=== PATIENT | male | born 1995 | race Caucasian/White ===

== ENCOUNTER 2019-08-05 11:37 | Inpatient (IN) | payer OTHER ==
[2019-08-05] MEDS ORDERED: ACETAMINOPHEN 325 MG TABLET (FP) PO PRN ×2 (12:51)
[2019-08-05] MEDS ORDERED: MAGNESIUM CITRATE 300 ML BOTTLE PO PRN (12:51)
[2019-08-05] MEDS ORDERED: BISMUTH SUBSALICYLATE 524 MG/30 ML UD PO PRN (12:51)
[2019-08-05] MEDS ORDERED: ONDANSETRON *ODT* 4 MG TABLET SL ONE (12:51)
[2019-08-05] MEDS ORDERED: MAGNESIUM HYDROX 2400MG/30ML ORAL SUSPENSION 30 ML CUP PO PRN (12:51)
[2019-08-05] MEDS ORDERED: chlordiazePOXIDE HCL 25 MG CAPSULE PO PRN (12:51)
[2019-08-05] MEDS ORDERED: METHOCARBAMOL 500 MG TABLET PO PRN (12:51)
[2019-08-05] MEDS ORDERED: MAG HYDROX/AL HYDROX/SIMETH 30 ML UNIT-DOSE CUP PO PRN (12:51)
[2019-08-05] MEDS ORDERED: IBUPROFEN 400 MG TABLET (FP) PO PRN (12:51)
[2019-08-05] MEDS ORDERED: MENTHOL/PHENOL 1 EACH UD MM PRN (12:51)
[2019-08-05] MEDS ORDERED: NICOTINE POLACRILEX 2 MG GUM BUC PRN (12:51)
[2019-08-05 14:24] VITALS: BMI 24.2
[2019-08-05] MEDS: PRENATAL VITAMINS W/ FOLIC ACID TABLET (FP) PO SCH (15:47)
[2019-08-05] MEDS: hydrOXYzine PAMOATE 25 MG CAPSULE (FP) PO SCH ×3 (15:47→22:10)
[2019-08-05] MEDS: NICOTINE 7 MG/24 HOURS TOPICAL PATCH TD SCH (15:47)
[2019-08-05 18:10] LABS: HEMATOCRIT 45.7 % (35.4-49); HEMOGLOBIN 15.3 GM/dL (11.7-16.9); MCHC 33.4 g/dl (32.0-35.9); MEAN CELL VOLUME 95.7 fl (80-96); MEAN PLT VOLUME 8.4 fl (7.5-11.1); PLATELET COUNT 250 K/MM3 (134-434); RBC 4.77 M/mm3 (4.00-5.60); RDW 13.8 % (11.9-15.9); WHITE BLOOD COUNT 7.2 K/mm3 (4.0-10.0)
[2019-08-05] MEDS: chlordiazePOXIDE HCL 25 MG CAPSULE PO SCH ×2 (18:13→22:10)
[2019-08-05 18:15] LABS: ALBUMIN 4.4 g/dl (3.4-5.0); BILIRUBIN,TOTAL 0.8 mg/dL (0.2-1); BLOOD UREA NITROGEN 19.2 mg/dL (7-18); CALCIUM 9.5 mg/dL (8.5-10.1); CREATININE 1.2 mg/dL (0.55-1.3); TOT PROT 7.4 g/dl (6.4-8.2)
[2019-08-05] MEDS: MELATONIN 5 MG TABLETS PO SCH (22:10)
[2019-08-05] MEDS: THIAMINE HCL 100 MG TABLET (FP) PO SCH (22:10)
[2019-08-06] MEDS: chlordiazePOXIDE HCL 25 MG CAPSULE PO SCH ×4 (05:20→22:06)
[2019-08-06] MEDS: hydrOXYzine PAMOATE 25 MG CAPSULE (FP) PO SCH ×5 (05:27→22:06)
[2019-08-06] MEDS: PRENATAL VITAMINS W/ FOLIC ACID TABLET (FP) PO SCH (10:04)
[2019-08-06] MEDS: NICOTINE 7 MG/24 HOURS TOPICAL PATCH TD SCH (10:07)
[2019-08-06] MEDS: GABAPENTIN 300 MG CAPSULE PO SCH ×2 (12:39→22:06)
[2019-08-06] MEDS: SERTRALINE HCL 50 MG TABLET (FP) PO SCH (12:39)
[2019-08-06] MEDS ORDERED: QUEtiapine FUMARATE 200 MG TABLET PO SCH (22:00)
[2019-08-06] MEDS ORDERED: QUEtiapine FUMARATE 100 MG TABLET (FP) PO SCH (22:00)
[2019-08-06] MEDS: MELATONIN 5 MG TABLETS PO SCH (22:07)
[2019-08-06] MEDS: THIAMINE HCL 100 MG TABLET (FP) PO SCH (22:07)
[2019-08-07] MEDS: chlordiazePOXIDE HCL 25 MG CAPSULE PO SCH ×2 (06:09→10:21)
[2019-08-07] MEDS: hydrOXYzine PAMOATE 25 MG CAPSULE (FP) PO SCH ×2 (06:09→09:45)
[2019-08-07 08:51] VITALS: BP 122/73; PULSE 70; TEMP 98.9
[2019-08-07] MEDS ORDERED: PENICILLIN G BENZATHINE 2,400,000 UNIT/4 ML PFS IM ONE (09:17)
[2019-08-07] MEDS: SERTRALINE HCL 50 MG TABLET (FP) PO SCH (09:43)
[2019-08-07] MEDS: GABAPENTIN 300 MG CAPSULE PO SCH (09:43)
[2019-08-07] MEDS: NICOTINE 7 MG/24 HOURS TOPICAL PATCH TD SCH (09:44)
[2019-08-07] MEDS: PRENATAL VITAMINS W/ FOLIC ACID TABLET (FP) PO SCH (09:45)
[2019-08-08] MEDS ORDERED: chlordiazePOXIDE HCL 10 MG CAPSULE PO PRN
[2019-08-08] MEDS ORDERED: chlordiazePOXIDE HCL 10 MG CAPSULE PO SCH (05:00)
[2019-08-09] MEDS ORDERED: chlordiazePOXIDE HCL 10 MG CAPSULE PO SCH (05:00)
[2019-08-10] MEDS ORDERED: chlordiazePOXIDE HCL 10 MG CAPSULE PO ONE (05:00)
== END 2019-08-07 09:58 | disposition left against medical advice (07) | DRG 770 ==
LOC: YASAS 11:37 → Y3N 14:04
PROVIDERS: ADMIT Allergy & Immunology; ATTEND Allergy & Immunology
PROC: HZ2ZZZZ Detoxification Services for Substance Abuse Treatment (ICD-10-PCS; principal; 2019-08-05)
DX: F10.230 Alcohol dependence with withdrawal, uncomplicated (principal); F14.20 Cocaine dependence, uncomplicated; F12.10 Cannabis abuse, uncomplicated; F17.210 Nicotine dependence, cigarettes, uncomplicated; F32.9 Major depressive disorder, single episode, unspecified; F19.282 Other psychoactive substance dependence with psychoactive substance-induced sleep disorder; F39 Unspecified mood [affective] disorder; Z86.19 Personal history of other infectious and parasitic diseases
CPT/HCPCS: 36415; 80053; 85027; 86593; 86780; 93005; 93010

== ENCOUNTER 2019-10-15 09:21 | Inpatient (IN) | payer OTHER ==
--- NOTE | 2019-10-15 09:48 | BHS.RME ---
Substance Use & Tx History - Substance Use History Alcohol Substance amount: 3 pints whiskey Frequency of use: Daily Substance route: Oral Date of Last Use: 10/14/19 Cocaine-Crack Substance amount: $400 Frequency of use: Daily Substance route: Smoking Date of Last Use: 10/14/19 Marijuana/Hashish Substance amount: 3 blunts Frequency of use: Daily Substance route: Smoking Date of Last Use: 10/14/19 Nicotine Substance amount: 1 pack Frequency of use: Daily Substance route: Smoking Date of Last Use: 10/15/19 Physical/Psych/Mental Status - Behavior General Behavior: Increased activity (restlessness, agitation) Eye Contact: Normal - Cooperativeness Cooperativeness: Cooperative - Thinking Thought Processes: Tight, Logical, Goal Directed - Physical Health Problems Is patient presently having any pain?: No Does patient presently have any injuries (include location): No Does patient currently have a fever: No Is patient : No CIWA Nausea/Vomitin-No Nausea/No Vomiting Muscle Tremors: 1-None Visible, but [place] Anxiety: 4-Mod. Anxious/Guarded Agitation: 4-Moderately Restless Paroxysmal Sweats: 4-Forehead w/Sweat Beads Orientation: 1-Uncertain about Date Tacttile Disturbances: 0-None Auditory Disturbances: 0-None Visual Disturbances: 0-None Headache: 0-None Present CIWA-Ar Total Score: 14
--- NOTE | 2019-10-15 10:18 | HP ---
CIWA Score Nausea/Vomitin-No Nausea/No Vomiting Muscle Tremors: 1-None Visible, but [place] Anxiety: 4-Mod. Anxious/Guarded Agitation: 4-Moderately Restless Paroxysmal Sweats: 4-Forehead w/Sweat Beads Orientation: 1-Uncertain about Date Tacttile Disturbances: 0-None Auditory Disturbances: 0-None Visual Disturbances: 0-None Headache: 0-None Present CIWA-Ar Total Score: 14 - Admission Criteria OASAS Guidelines: Admission for Medically Managed Detox: Requires at least one of the followin. CIWA greater than 12 2. Seizures within the past 24 hours 3. Delirium tremens within the past 24 hours 4. Hallucinations within the past 24 hours 5. Acute intervention needed for co occurring medical disorder 6. Acute intervention needed for co occurring psychiatric disorder 7. Severe withdrawal that cannot be handled at a lower level of care (continued vomiting, continued diarrhea, abnormal vital signs) requiring intravenous medication and/or fluids 8. Admitting History and Physical - Admission Chief Complaint: Mr. Wharton is a 24 yo man who presents to [facility] requesting detox for alcohol use disorder. History of Present Illness: Mr. Wharton is a 24 yo man who presents to [facility] requesting detox for alcohol use disorder. He was last here in July, left after 2 days. He states "I wasn't ready". 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 Cocaine-Crack Substance amount: $400 Frequency of use: Daily Substance route: Smoking Date of Last Use: 10/14/19 First use age 20 y Marijuana/Hashish Substance amount: 3 blunts Frequency of use: Daily Substance route: Smoking Date of Last Use: 10/14/19 First use age 13 y Nicotine Substance amount: 1 pack Frequency of use: Daily Substance route: Smoking Date of Last Use: 10/15/19 First use age 13 y History Source: Patient Limitations to Obtaining History: No Limitations - Smoking History Smoking history: Current every day smoker Have you smoked in the past 12 months: Yes Aproximately how many cigarettes per day: 20 Admission ROS BHS - HPI Allergies/Adverse Reactions: Allergies Allergy/AdvReac Type Severity Reaction Status Date / Time No Known Allergies Allergy Verified 10/15/19 10:10 Exam Limitations: No Limitations - Ebola screening Have you traveled outside of the country in the last 21 days: No Have you been sick,other than usual withdrawal symptoms: No Do you have a fever: No - Review of Systems Constitutional: No Symptoms Reported EENT: reports: No Symptoms Reported Respiratory: reports: No Symptoms reported Cardiac: reports: No Symptoms Reported GI: reports: No Symptoms Reported : reports: No Symptoms Reported Musculoskeletal: reports: No Symptoms Reported Integumentary: reports: No Symptoms Reported Neuro: reports: No Symptoms reported Endocrine: reports: No Symptoms Reported Hematology: reports: No Symptoms Reported Psychiatric: reports: Anxious Patient History - Patient Medical History Hx Anemia: No Hx Asthma: No Hx Chronic Obstructive Pulmonary Disease (COPD): No Hx Cancer: No Hx Cardiac Disorders: No Hx Congestive Heart Failure: No Hx Hypertension: No Hx Hypercholesterolemia: No Hx Pacemaker: No HX Cerebrovascular Accident: No Hx Seizures: No Hx Dementia: No Hx Diabetes: No Hx Gastrointestinal Disorders: No Hx Liver Disease: No Hx Genitourinary Disorders: No Hx Sexually Transmitted Disorders: No Hx Renal Disease (ESRD): No Hx Thyroid Disease: No Hx Human Immunodeficiency Virus (HIV): No Hx Hepatitis C: No Hx Depression: Yes ([facility] in treatment) Hx Suicide Attempt: No Hx Bipolar Disorder: No Hx Schizophrenia: No - Patient Surgical History Past Surgical History: No - PPD History Date: 08/07/19 - Smoking Cessation Smoking history: Current every day smoker (on) Have you smoked in the past 12 months: Yes Aproximately how many cigarettes per day: 20 Hx Chewing Tobacco Use: No Initiated information on smoking cessation: Yes 'Breaking Loose' booklet given: 10/15/19 - Substances abused Alcohol Substance route: Oral Frequency: Daily Amount used: 2 PINTS OF WHISKY Age of first use: 14 Date of last use: 10/14/19 Crack Substance route: Smoking Frequency: Daily Amount used: $400 Age of first use: 20 Date of last use: 10/14/19 Marijuana/Hashish Substance route: Smoking Frequency: Daily Amount used: 3 BLUNTS Age of first use: 13 Date of last use: 10/14/19 Admission Physical Exam [facility] - Vital Signs Vital Signs: 99/60, 45, 16, 97.6 - Physical General Appearance: Yes: No Apparent Distress, Nourished, Appropriately Dressed, Tremorous, Anxious HEENTM: Yes: EOMI, Hearing grossly Normal, Normocephalic, Normal Voice Respiratory: Yes: Lungs Clear, Normal Breath Sounds, No Respiratory Distress, No Accessory Muscle Use Neck: Yes: Within Normal Limits, Supple Breast: Yes: Breast Exam Deferred Cardiology: Yes: Regular Rhythm, Bradycardia Abdominal: Yes: Normal Bowel Sounds, Non Tender, Flat, Soft Genitourinary: Yes: Other (deferred) Back: Yes: Within Normal Limits Musculoskeletal: Yes: full range of Motion, Gait Steady Extremities: Yes: Normal Inspection, Non-Tender Neurological: Yes: Fully Oriented, Alert, Normal Mood/Affect, Normal Response Integumentary: Yes: Normal Color, Dry, Warm - Diagnostic (1) Alcohol dependence with withdrawal Current Visit: Yes Status: Acute Qualifiers: Complication of substance-induced condition: uncomplicated Qualified Code(s): F10.230 - Alcohol dependence with withdrawal, uncomplicated (2) Cannabis use disorder, mild, abuse Current Visit: Yes Status: Acute (3) Nicotine dependence Current Visit: Yes Status: Acute Qualifiers: Nicotine product type: cigarettes Substance use status: uncomplicated Qualified Code(s): F17.210 - Nicotine dependence, cigarettes, uncomplicated (4) Cocaine use disorder Current Visit: Yes Status: Acute (5) Bradycardia Current Visit: Yes Status: Acute Cleared for Admission [facility] - Detox or Rehab [facility] Level of Care: Medically Managed Detox Regimen/Protocol: Librium Breathalyzer - Breathalyzer Breathalyzer: 0 Urine Drug Screen - Test Device Lot number: [id number] Expiration date: 05/19/21 - Control Is test valid?: Yes - Results Drug screen NEGATIVE: No Urine drug screen results: THC-Marijuana, BRUCE-Cocaine, BZO-Benzodiazepines Inpatient Rehab Admission - Rehab Decision to Admit Inpatient rehab admission?: No
[2019-10-15] MEDS ORDERED: MAGNESIUM HYDROX 2400MG/30ML ORAL SUSPENSION 30 ML CUP PO PRN (10:23)
[2019-10-15] MEDS ORDERED: MENTHOL/PHENOL 1 EACH UD MM PRN (10:23)
[2019-10-15] MEDS ORDERED: chlordiazePOXIDE HCL 25 MG CAPSULE PO PRN (10:23)
[2019-10-15] MEDS ORDERED: METHOCARBAMOL 500 MG TABLET PO PRN (10:23)
[2019-10-15] MEDS ORDERED: IBUPROFEN 400 MG TABLET (FP) PO PRN (10:23)
[2019-10-15] MEDS ORDERED: ONDANSETRON *ODT* 4 MG TABLET SL PRN (10:23)
[2019-10-15] MEDS ORDERED: BISMUTH SUBSALICYLATE 524 MG/30 ML UD PO PRN (10:23)
[2019-10-15] MEDS ORDERED: MAGNESIUM CITRATE 300 ML BOTTLE PO PRN (10:23)
[2019-10-15] MEDS ORDERED: ACETAMINOPHEN 325 MG TABLET (FP) PO PRN ×2 (10:23)
[2019-10-15 10:35] VITALS: BMI 25.4
--- NOTE | 2019-10-15 13:43 | CONSULT ---
[facility] Psychiatric Consult - Data Date of interview: 10/15/19 Admission source: [facility] Identifying data: Patient is a 24 year old single male, father of one, domiciled, and currently unemployed. This is one of multiple admissions for patient. Patient admitted to for alcohol, cocaine, and cannabis dependence. Substance Abuse History: Smoking Cessation. Smoking history: Current every day smoker (on). Have you smoked in the past 12 months: Yes. Aproximately how many cigarettes per day: 20. Hx Chewing Tobacco Use: No. Initiated information on smoking cessation: Yes. 'Breaking Loose' booklet given: 10/15/19. - Substances abused. Alcohol. Substance route: Oral. Frequency: Daily. Amount used: 2 PINTS OF WHISKY. Age of first use: 14. Date of last use: 10/14/19. Crack. Substance route: Smoking. Frequency: Daily. Amount used: $400. Age of first use: 20. Date of last use: 10/14/19. Marijuana/Hashish. Substance route: Smoking. Frequency: Daily. Amount used: 3 BLUNTS. Age of first use: 13. Date of last use: 10/14/19 Medical History: denies. Psychiatric History: Mr. Wharton reports history of several psychiatric hospitalizations ([facility] Facility in [place]). Diagnosis of Depression + Anxiety disorder. Patient is currently provided with outpatient psychiatric care at [facility] and states that he is prescribed Zoloft 150mg daily + Seroquel 100mg HS + Gabapentin 600mg BID. Reports most recently taking his medications last week. History of one suicide attempt in 2017 via self mutilation. At present patient presents as lethargic. Physical/Sexual Abuse/Trauma History: endorses good health. Mental Status Exam - Mental Status Exam Alert and Oriented to: Time, Place, Person Cognitive Function: Good Patient Appearance: Well Groomed Mood: Withdrawn Affect: Mood Congruent Patient Behavior: Fatigued Speech Pattern: Delayed Voice Loudness: Mildly Soft/Quiet Thought Process: Goal Oriented Thought Disorder: Not Present Hallucinations: Denies Suicidal Ideation: Denies Homicidal Ideation: Denies Insight/Judgement: Poor Sleep: Fair Appetite: Fair Muscle strength/Tone: Normal Gait/Station: Normal Psychiatric Findings - Problem List ([place] 1, 2,3) (1) Alcohol dependence with withdrawal Current Visit: Yes Status: Acute Qualifiers: Complication of substance-induced condition: uncomplicated Qualified Code(s): F10.230 - Alcohol dependence with withdrawal, uncomplicated (2) Cannabis use disorder, mild, abuse Current Visit: Yes Status: Acute (3) Cocaine use disorder Current Visit: Yes Status: Acute (4) History of depression Current Visit: Yes Status: Chronic - Initial Treatment Plan Initial Treatment Plan: Psychoeducation provided. Detoxification in progress. Will order Zoloft 100mg daily + Gabapentin 300mg BID (reduced dose due to risk of oversedation) + Seroquel 100mg HS. Benefits and side effects discussed. Verbal consent given.
[2019-10-15] MEDS: hydrOXYzine PAMOATE 25 MG CAPSULE (FP) PO SCH ×3 (13:47→22:56)
[2019-10-15 14:52] LABS: HEMOGLOBIN 13.5 GM/dL (11.7-16.9); MCH 31.9 pg (25.7-33.7); MCHC 33.8 g/dl (32.0-35.9); MEAN CELL VOLUME 94.6 fl (80-96); MEAN PLT VOLUME 8.5 fl (7.5-11.1); PLATELET COUNT 244 K/MM3 (134-434); RBC 4.23 M/mm3 (4.00-5.60); WHITE BLOOD COUNT 5.7 K/mm3 (4.0-10.0)
[2019-10-15 15:08] LABS: ALBUMIN 3.9 g/dl (3.4-5.0); BLOOD UREA NITROGEN 21.1 mg/dL (7-18); POTASSIUM 4.2 mmol/L (3.5-5.1)
[2019-10-15 15:13] LABS: TOT PROT 6.9 g/dl (6.4-8.2)
--- NOTE | 2019-10-15 15:30 | EKG ---
Test Reason : Blood Pressure : / mmHG Vent. Rate : 046 BPM Atrial Rate : 046 BPM P-R Int : 120 ms QRS Dur : 092 ms QT Int : 470 ms P-R-T Axes : 017 052 036 degrees QTc Int : 411 ms SINUS BRADYCARDIA OTHERWISE NORMAL ECG WHEN COMPARED WITH ECG OF 05-AUG-2019 12:17, NO SIGNIFICANT CHANGE WAS FOUND Confirmed by JAZMIN PAPPAS MD ([id number]) on 10/15/2019 3:30:02 PM Referred By: Confirmed By:JAZMIN PAPPAS MD
[2019-10-15 15:33] LABS: BILIRUBIN,TOTAL 0.6 mg/dL (0.2-1)
[2019-10-15] MEDS: chlordiazePOXIDE HCL 25 MG CAPSULE PO SCH ×2 (18:38→22:56)
[2019-10-15] MEDS: THIAMINE HCL 100 MG TABLET (FP) PO SCH (22:56)
[2019-10-15] MEDS: GABAPENTIN 300 MG CAPSULE PO SCH (22:56)
[2019-10-15] MEDS: QUEtiapine FUMARATE 100 MG TABLET (FP) PO SCH (22:56)
[2019-10-15] MEDS: MELATONIN 5 MG TABLETS PO SCH (22:56)
[2019-10-16] MEDS: chlordiazePOXIDE HCL 25 MG CAPSULE PO SCH ×4 (07:11→22:21)
[2019-10-16] MEDS: hydrOXYzine PAMOATE 25 MG CAPSULE (FP) PO SCH ×5 (07:11→22:20)
[2019-10-16] MEDS ORDERED: NICOTINE 7 MG/24 HOURS TOPICAL PATCH TD SCH (10:00)
[2019-10-16] MEDS: PRENATAL VITAMINS W/ FOLIC ACID TABLET (FP) PO SCH (10:16)
[2019-10-16] MEDS: GABAPENTIN 300 MG CAPSULE PO SCH ×2 (10:16→22:20)
[2019-10-16] MEDS: SERTRALINE HCL 50 MG TABLET (FP) PO SCH (10:17)
[2019-10-16] MEDS: NICOTINE 7 MG/24 HOURS TOPICAL PATCH TD SCH ×2 (10:25→10:40)
--- NOTE | 2019-10-16 15:59 | PN ---
S CIWA - CIWA Score Nausea/Vomitin Muscle Tremors: 3 Anxiety: 2 Agitation: 2 Paroxysmal Sweats: 1-Minimal Palms Moist Orientation: 0-Oriented Tacttile Disturbances: 1-Very Mild Itch/Numbness Auditory Disturbances: 0-None Visual Disturbances: 0-None Headache: 2-Mild CIWA-Ar Total Score: 13 BHS Progress Note (SOAP) Subjective: alert,irritable,anxious,interrupted sleep,tremor,pain in the body and back aching pain,nausea Objective: 10/16/19 15:58 Vital Signs Temperature 97.3 F L 10/16/19 12:48 Pulse Rate 76 10/16/19 15:00 Respiratory Rate 16 10/16/19 12:48 Blood Pressure 109/65 10/16/19 15:00 O2 Sat by Pulse Oximetry (%) 98 10/16/19 12:48 Laboratory Last Values WBC 5.7 K/mm3 (4.0-10.0) 10/15/19 10:50 RBC 4.23 M/mm3 (4.00-5.60) 10/15/19 10:50 Hgb 13.5 GM/dL (11.7-16.9) 10/15/19 10:50 Hct 40.0 % (35.4-49) 10/15/19 10:50 MCV 94.6 fl (80-96) 10/15/19 10:50 MCH 31.9 pg (25.7-33.7) 10/15/19 10:50 MCHC 33.8 g/dl (32.0-35.9) 10/15/19 10:50 RDW 14.0 % (11.9-15.9) 10/15/19 10:50 Plt Count 244 K/MM3 (134-434) 10/15/19 10:50 MPV 8.5 fl (7.5-11.1) 10/15/19 10:50 Sodium 141 mmol/L (136-145) 10/15/19 10:50 Potassium 4.2 mmol/L (3.5-5.1) 10/15/19 10:50 Chloride 107 mmol/L (98-107) 10/15/19 10:50 Carbon Dioxide 30 mmol/L (21-32) 10/15/19 10:50 Anion Gap 4 MMOL/L (8-16) L 10/15/19 10:50 BUN 21.1 mg/dL (7-18) H 10/15/19 10:50 Creatinine 1.0 mg/dL (0.55-1.3) 10/15/19 10:50 Est GFR (CKD-EPI)AfAm 121.55 10/15/19 10:50 Est GFR (CKD-EPI)NonAf 104.88 10/15/19 10:50 Random Glucose 64 mg/dL (74-106) L 10/15/19 10:50 Calcium 9.0 mg/dL (8.5-10.1) 10/15/19 10:50 Total Bilirubin 0.6 mg/dL (0.2-1) 10/15/19 10:50 AST 13 U/L (15-37) L 10/15/19 10:50 ALT 26 U/L (13-61) 10/15/19 10:50 Alkaline Phosphatase 55 U/L (45-117) 10/15/19 10:50 Total Protein 6.9 g/dl (6.4-8.2) 10/15/19 10:50 Albumin 3.9 g/dl (3.4-5.0) 10/15/19 10:50 Syphilis Serology Reactive (NONREACTIVE) A* 10/15/19 10:50 RPR Titer Reactive 1:2 (NONREACTIVE) H D 10/15/19 10:50 COVID-19 (ADAM) Not detected (Not Detected) 10/15/19 10:45 HIV Ag/Ab Combo Qual Negative (NEGATIVE) 10/15/19 10:50 10/16/19 16:01 adequately treated for syphilis in the past had rpr titre 1:4 and received 2.4 million unit of bicillin on 08/07/19 Assessment: 10/16/19 16:03 withdrawal symptom Plan: continue detox librium regimen,fluid water
[2019-10-16] MEDS: QUEtiapine FUMARATE 100 MG TABLET (FP) PO SCH (22:20)
[2019-10-16] MEDS: THIAMINE HCL 100 MG TABLET (FP) PO SCH (22:20)
[2019-10-16] MEDS: MELATONIN 5 MG TABLETS PO SCH (22:20)
[2019-10-17] MEDS: hydrOXYzine PAMOATE 25 MG CAPSULE (FP) PO SCH ×5 (07:28→22:25)
[2019-10-17] MEDS: chlordiazePOXIDE HCL 25 MG CAPSULE PO SCH ×4 (07:28→22:25)
--- NOTE | 2019-10-17 09:43 | PN ---
[facility] CIWA - CIWA Score Nausea/Vomitin-No Nausea/No Vomiting Muscle Tremors: None Anxiety: 3 Agitation: 2 Paroxysmal Sweats: 3 Orientation: 0-Oriented Tacttile Disturbances: 0-None Auditory Disturbances: 0-None Visual Disturbances: 0-None Headache: 2-Mild CIWA-Ar Total Score: 10 S Progress Note (SOAP) Subjective: c/o sweats, anxiety, and headache. Objective: Vital Signs 10/17/19 10/17/19 06:19 08:40 Temperature 97.6 F 96.9 F L Pulse Rate 70 52 L Respiratory 18 18 Rate Blood Pressure 103/61 116/73 O2 Sat by Pulse 99 Oximetry (%) Laboratory Last Values WBC 5.7 K/mm3 (4.0-10.0) 10/15/19 10:50 RBC 4.23 M/mm3 (4.00-5.60) 10/15/19 10:50 Hgb 13.5 GM/dL (11.7-16.9) 10/15/19 10:50 Hct 40.0 % (35.4-49) 10/15/19 10:50 MCV 94.6 fl (80-96) 10/15/19 10:50 MCH 31.9 pg (25.7-33.7) 10/15/19 10:50 MCHC 33.8 g/dl (32.0-35.9) 10/15/19 10:50 RDW 14.0 % (11.9-15.9) 10/15/19 10:50 Plt Count 244 K/MM3 (134-434) 10/15/19 10:50 MPV 8.5 fl (7.5-11.1) 10/15/19 10:50 Sodium 141 mmol/L (136-145) 10/15/19 10:50 Potassium 4.2 mmol/L (3.5-5.1) 10/15/19 10:50 Chloride 107 mmol/L (98-107) 10/15/19 10:50 Carbon Dioxide 30 mmol/L (21-32) 10/15/19 10:50 Anion Gap 4 MMOL/L (8-16) L 10/15/19 10:50 BUN 21.1 mg/dL (7-18) H 10/15/19 10:50 Creatinine 1.0 mg/dL (0.55-1.3) 10/15/19 10:50 Est GFR (CKD-EPI)AfAm 121.55 10/15/19 10:50 Est GFR (CKD-EPI)NonAf 104.88 10/15/19 10:50 Random Glucose 64 mg/dL (74-106) L 10/15/19 10:50 Calcium 9.0 mg/dL (8.5-10.1) 10/15/19 10:50 Total Bilirubin 0.6 mg/dL (0.2-1) 10/15/19 10:50 AST 13 U/L (15-37) L 10/15/19 10:50 ALT 26 U/L (13-61) 10/15/19 10:50 Alkaline Phosphatase 55 U/L (45-117) 10/15/19 10:50 Total Protein 6.9 g/dl (6.4-8.2) 10/15/19 10:50 Albumin 3.9 g/dl (3.4-5.0) 10/15/19 10:50 Syphilis Serology Reactive (NONREACTIVE) A* 10/15/19 10:50 RPR Titer Reactive 1:2 (NONREACTIVE) H D 10/15/19 10:50 COVID-19 (AD[facility]) Not detected (Not Detected) 10/15/19 10:45 HIV Ag/Ab Combo Qual Negative (NEGATIVE) 10/15/19 10:50 Labs noted. Assessment: 10/17/19 09:43 AOX3, in no acute respiratory distress. Full ROM, ambulating in the unit. Withdrawal symptoms. Plan: continue detox.
[2019-10-17] MEDS: GABAPENTIN 300 MG CAPSULE PO SCH ×2 (10:16→22:24)
[2019-10-17] MEDS: PRENATAL VITAMINS W/ FOLIC ACID TABLET (FP) PO SCH (10:16)
[2019-10-17] MEDS: SERTRALINE HCL 50 MG TABLET (FP) PO SCH (10:18)
[2019-10-17] MEDS: NICOTINE 7 MG/24 HOURS TOPICAL PATCH TD SCH (10:18)
[2019-10-17] MEDS: MAG HYDROX/AL HYDROX/SIMETH 30 ML UNIT-DOSE CUP PO PRN (12:31)
[2019-10-17] MEDS: NICOTINE POLACRILEX 2 MG GUM BUC PRN ×2 (13:11→16:41)
[2019-10-17] MEDS: THIAMINE HCL 100 MG TABLET (FP) PO SCH (22:24)
[2019-10-17] MEDS: MELATONIN 5 MG TABLETS PO SCH (22:24)
[2019-10-17] MEDS: QUEtiapine FUMARATE 100 MG TABLET (FP) PO SCH (22:25)
[2019-10-18] MEDS ORDERED: chlordiazePOXIDE HCL 10 MG CAPSULE PO PRN
[2019-10-18] MEDS: chlordiazePOXIDE HCL 10 MG CAPSULE PO SCH ×3 (05:11→17:24)
[2019-10-18] MEDS: hydrOXYzine PAMOATE 25 MG CAPSULE (FP) PO SCH (05:11)
--- NOTE | 2019-10-18 09:03 | PN ---
S CIWA - CIWA Score Nausea/Vomitin-Mild Nausea/No Vomiting Muscle Tremors: 2 Anxiety: 1-Mildly Anxious Agitation: 1-Slight > Activity Paroxysmal Sweats: 1-Minimal Palms Moist Orientation: 0-Oriented Tacttile Disturbances: 0-None Auditory Disturbances: 0-None Visual Disturbances: 1-Very Mild Sensitivity Headache: 1-Very Mild CIWA-Ar Total Score: 8 BHS Progress Note (SOAP) Subjective: 24 years old male was admitted on 10/15/19 for alcohol withdrawal sx management treating with librium detox regiment seen by psychiatrist resume zoloft gabapentin and seroquel feels better today ate breakfast tolerated food well resting in bed limited conversation with staff prolong qt discontinue vistaril Objective: 10/18/19 09:04 Vital Signs - 24 hr 10/17/19 10/17/19 10/17/19 12:35 17:10 20:42 Temperature 97.3 F L 96.1 F L 97.8 F Pulse Rate 58 L 58 L 54 L Respiratory 18 18 16 Rate Blood Pressure 129/82 113/69 116/80 O2 Sat by Pulse 99 99 98 Oximetry (%) 10/18/19 06:09 Temperature 97.2 F L Pulse Rate 58 L Respiratory 18 Rate Blood Pressure 99/51 L O2 Sat by Pulse 97 Oximetry (%) Laboratory Tests 10/15/19 10/15/19 10/15/19 10:45 10:50 10:50 WBC 5.7 RBC 4.23 Hgb 13.5 Hct 40.0 MCV 94.6 MCH 31.9 MCHC 33.8 RDW 14.0 Plt Count 244 MPV 8.5 Sodium Potassium Chloride Carbon Dioxide Anion Gap BUN Creatinine Est GFR (CKD-EPI)AfAm Est GFR (CKD-EPI)NonAf Random Glucose Calcium Total Bilirubin AST ALT Alkaline Phosphatase Total Protein Albumin Syphilis Serology RPR Titer COVID-19 (ADAM) Not detected HIV Ag/Ab Combo Qual Negative 10/15/19 10/15/19 10/15/19 10:50 10:50 10:50 WBC RBC Hgb Hct MCV MCH MCHC RDW Plt Count MPV Sodium 141 Potassium 4.2 Chloride 107 Carbon Dioxide 30 Anion Gap 4 L BUN 21.1 H Creatinine 1.0 Est GFR (CKD-EPI)AfAm 121.55 Est GFR (CKD-EPI)NonAf 104.88 Random Glucose 64 L Calcium 9.0 Total Bilirubin 0.6 AST 13 L ALT 26 Alkaline Phosphatase 55 Total Protein 6.9 Albumin 3.9 Syphilis Serology Reactive A* RPR Titer Reactive 1:2 H D COVID-19 (ADAM) HIV Ag/Ab Combo Qual 10/18/19 09:05 syphilis contacted treated last penicillin G IM 07/2019 for rpr 1:4 Assessment: 10/18/19 09:06 alcohol withdrawal Plan: librium regiment
[2019-10-18] MEDS: GABAPENTIN 300 MG CAPSULE PO SCH (10:42)
[2019-10-18] MEDS: PRENATAL VITAMINS W/ FOLIC ACID TABLET (FP) PO SCH (10:42)
[2019-10-18] MEDS: SERTRALINE HCL 50 MG TABLET (FP) PO SCH (10:42)
[2019-10-18] MEDS: NICOTINE 7 MG/24 HOURS TOPICAL PATCH TD SCH (10:43)
[2019-10-18] MEDS: NICOTINE POLACRILEX 2 MG GUM BUC PRN ×2 (10:43→17:32)
[2019-10-18] MEDS: MAG HYDROX/AL HYDROX/SIMETH 30 ML UNIT-DOSE CUP PO PRN (16:30)
[2019-10-18 17:24] VITALS: BP 115/70; PULSE 53; TEMP 97.5
[2019-10-19] MEDS ORDERED: chlordiazePOXIDE HCL 10 MG CAPSULE PO SCH (05:00)
[2019-10-20] MEDS ORDERED: chlordiazePOXIDE HCL 10 MG CAPSULE PO ONE (05:00)
== END 2019-10-18 18:30 | disposition home or self-care (01) | DRG 774 ==
LOC: YASAS 09:21 → Y3N 10:10
PROVIDERS: ADMIT Allergy & Immunology; ATTEND Allergy & Immunology
PROC: HZ2ZZZZ Detoxification Services for Substance Abuse Treatment (ICD-10-PCS; principal; 2019-10-15)
DX: F10.230 Alcohol dependence with withdrawal, uncomplicated (principal); F14.20 Cocaine dependence, uncomplicated; F12.20 Cannabis dependence, uncomplicated; F17.210 Nicotine dependence, cigarettes, uncomplicated; F41.9 Anxiety disorder, unspecified; F32.9 Major depressive disorder, single episode, unspecified; R00.1 Bradycardia, unspecified; Z86.19 Personal history of other infectious and parasitic diseases; Z91.5 Personal history of self-harm; M25.511 Pain in right shoulder; W19.XXXA Unspecified fall, initial encounter; Y93.89 Activity, other specified; Y92.89 Other specified places as the place of occurrence of the external cause; Y99.8 Other external cause status
CPT/HCPCS: 36415; 80053; 85027; 86593; 86780; 87389; 93005; 93010; U0003

== ENCOUNTER 2020-12-06 15:39 | Inpatient (IN) | payer OTHER ==
[2020-12-06] MEDS ORDERED: MENTHOL/PHENOL 1 EACH UD MM PRN (19:34)
[2020-12-06] MEDS ORDERED: NICOTINE 10 MG CARTRIDGE (INHALER) IH PRN (19:34)
[2020-12-06] MEDS ORDERED: ACETAMINOPHEN 325 MG TABLET (FP) PO PRN ×2 (19:34)
[2020-12-06] MEDS ORDERED: MAGNESIUM HYDROX 2400MG/30ML ORAL SUSPENSION 30 ML CUP PO PRN (19:34)
[2020-12-06] MEDS ORDERED: MAGNESIUM CITRATE 300 ML BOTTLE PO PRN (19:34)
[2020-12-06] MEDS ORDERED: MAG HYDROX/AL HYDROX/SIMETH 30 ML UNIT-DOSE CUP PO PRN (19:34)
[2020-12-06] MEDS ORDERED: BISMUTH SUBSALICYLATE 524 MG/30 ML PO PRN (19:34)
[2020-12-06] MEDS ORDERED: ONDANSETRON *ODT* 4 MG TABLET SL PRN (19:34)
[2020-12-06 20:50] VITALS: BMI 23.4
[2020-12-06] MEDS: MELATONIN 5 MG TABLETS PO SCH (22:46)
[2020-12-06] MEDS: METHOCARBAMOL 500 MG TABLET PO PRN (22:46)
[2020-12-06] MEDS: IBUPROFEN 400 MG TABLET (FP) PO PRN (22:46)
[2020-12-06] MEDS: THIAMINE HCL 100 MG TABLET (FP) PO SCH (22:50)
[2020-12-07] MEDS ORDERED: diazePAM 5 MG TABLET PO PRN (09:36)
[2020-12-07] MEDS: METHOCARBAMOL 500 MG TABLET PO PRN (10:20)
[2020-12-07] MEDS: PRENATAL VITAMINS W/ FOLIC ACID TABLET (FP) PO SCH (10:20)
[2020-12-07] MEDS: diazePAM 5 MG TABLET PO SCH ×3 (10:20→22:38)
[2020-12-07 10:50] LABS: HEMATOCRIT 43.1 % (35.4-49); HEMOGLOBIN 14.5 GM/dL (11.7-16.9); MCH 32.2 pg (25.7-33.7); MCHC 33.6 g/dl (32.0-35.9); MEAN CELL VOLUME 95.8 fl (80-96); MEAN PLT VOLUME 7.8 fl (7.5-11.1); PLATELET COUNT 262 10^3/uL (134-434); RDW 13.2 % (11.9-15.9); WHITE BLOOD COUNT 8.7 K/mm3 (4.0-10.0)
[2020-12-07 11:03] LABS: CALCIUM 8.4 mg/dL (8.5-10.1)
[2020-12-07 11:04] LABS: ALBUMIN 3.2 g/dl (3.4-5.0); BLOOD UREA NITROGEN 13.3 mg/dL (7-18)
[2020-12-07 11:07] LABS: CREATININE 0.8 mg/dL (0.55-1.3)
[2020-12-07 11:09] LABS: BILIRUBIN,TOTAL 0.2 mg/dL (0.2-1); TOT PROT 5.9 g/dl (6.4-8.2)
[2020-12-07 12:46] LABS: HIV INTERPRETATION NEGATIVE (NEGATIVE)
[2020-12-07] MEDS: MELATONIN 5 MG TABLETS PO SCH (22:37)
[2020-12-07] MEDS: THIAMINE HCL 100 MG TABLET (FP) PO SCH (22:38)
[2020-12-08] MEDS: diazePAM 5 MG TABLET PO SCH ×4 (05:48→22:19)
[2020-12-08] MEDS: METHOCARBAMOL 500 MG TABLET PO PRN (10:55)
[2020-12-08] MEDS: PRENATAL VITAMINS W/ FOLIC ACID TABLET (FP) PO SCH (10:55)
[2020-12-08] MEDS: IBUPROFEN 400 MG TABLET (FP) PO PRN (13:57)
[2020-12-08] MEDS: THIAMINE HCL 100 MG TABLET (FP) PO SCH (22:19)
[2020-12-08] MEDS: QUEtiapine FUMARATE 100 MG TABLET (FP) PO SCH (22:19)
[2020-12-08] MEDS: MELATONIN 5 MG TABLETS PO SCH (22:21)
[2020-12-09] MEDS: diazePAM 5 MG TABLET PO SCH ×3 (05:12→22:10)
[2020-12-09] MEDS: PRENATAL VITAMINS W/ FOLIC ACID TABLET (FP) PO SCH (10:37)
[2020-12-09] MEDS: METHOCARBAMOL 500 MG TABLET PO PRN (10:37)
[2020-12-09] MEDS: THIAMINE HCL 100 MG TABLET (FP) PO SCH (22:09)
[2020-12-09] MEDS: QUEtiapine FUMARATE 100 MG TABLET (FP) PO SCH (22:09)
[2020-12-09] MEDS: MELATONIN 5 MG TABLETS PO SCH (22:10)
[2020-12-10] MEDS ORDERED: diazePAM 5 MG TABLET PO SCH (06:00)
[2020-12-10 09:55] VITALS: BP 125/59; PULSE 68; TEMP 96.5
[2020-12-10] MEDS: METHOCARBAMOL 500 MG TABLET PO PRN (10:24)
[2020-12-10] MEDS: PRENATAL VITAMINS W/ FOLIC ACID TABLET (FP) PO SCH (11:32)
[2020-12-11] MEDS ORDERED: diazePAM 5 MG TABLET PO ONE (06:00)
== END 2020-12-10 12:10 | disposition left against medical advice (07) | DRG 770 ==
LOC: YASAS 15:39 → Y6N 21:29
PROVIDERS: ADMIT Allergy & Immunology; ATTEND Allergy & Immunology
PROC: HZ2ZZZZ Detoxification Services for Substance Abuse Treatment (ICD-10-PCS; principal; 2020-12-06)
DX: F10.230 Alcohol dependence with withdrawal, uncomplicated (principal); F14.20 Cocaine dependence, uncomplicated; F12.20 Cannabis dependence, uncomplicated; F17.210 Nicotine dependence, cigarettes, uncomplicated; F39 Unspecified mood [affective] disorder; F32.A Depression, unspecified; F41.9 Anxiety disorder, unspecified; Z91.51 Personal history of suicidal behavior; Z86.59 Personal history of other mental and behavioral disorders; Z86.19 Personal history of other infectious and parasitic diseases; Z56.0 Unemployment, unspecified
CPT/HCPCS: 36415; 80053; 85027; 86593; 86780; 87389; C9803; U0003; U0005

== ENCOUNTER 2023-03-07 12:44 | Inpatient (IN) | payer OTHER ==
[2023-03-07 14:40] VITALS: BMI 22.9
[2023-03-07] MEDS ORDERED: NALOXONE HCL (KLOXXADO) 8 MG SPRAY NS PRN (16:40)
[2023-03-07] MEDS ORDERED: MAGNESIUM HYDROX 2400MG/30ML ORAL SUSPENSION 30 ML CUP PO PRN (16:40)
[2023-03-07] MEDS ORDERED: ONDANSETRON *ODT* 4 MG TABLET SL PRN (16:40)
[2023-03-07] MEDS ORDERED: METHOCARBAMOL 500 MG TABLET PO PRN (16:40)
[2023-03-07] MEDS ORDERED: IBUPROFEN 400 MG TABLET (FP) PO PRN (16:40)
[2023-03-07] MEDS ORDERED: DICYCLOMINE HCL 10 MG CAPSULE PO PRN (16:40)
[2023-03-07] MEDS ORDERED: chlordiazePOXIDE HCL 25 MG CAPSULE PO PRN (16:40)
[2023-03-07] MEDS ORDERED: IBUPROFEN 600 MG TABLET (FP) PO PRN (16:40)
[2023-03-07] MEDS ORDERED: LOPERAMIDE HCL 2 MG CAPSULE PO PRN (16:40)
[2023-03-07] MEDS ORDERED: BISMUTH SUBSALICYLATE 524 MG/30 ML PO PRN (16:40)
[2023-03-07] MEDS ORDERED: BENZONATATE 200 MG CAPSULE PO PRN (16:40)
[2023-03-07] MEDS ORDERED: MAG HYDROX/AL HYDROX/SIMETH 30 ML UNIT-DOSE CUP PO PRN (16:40)
[2023-03-07] MEDS ORDERED: NALOXONE HCL 0.4 MG/ML VIAL IM PRN (16:40)
[2023-03-07] MEDS ORDERED: guaiFENesin 600 MG TABLET.ER (FP) PO PRN (16:40)
[2023-03-07] MEDS ORDERED: POLYETHYLENE GLYCOL (HEALTHYLAX) 3350 17 GM PACKET PO PRN (16:40)
[2023-03-07] MEDS ORDERED: BENZOCAINE/MENTHOL (CHLORASEPTIC ) LOZENGE MM PRN (16:40)
[2023-03-07] MEDS ORDERED: hydrOXYzine PAMOATE 25 MG CAPSULE (FP) PO PRN (16:40)
[2023-03-07] MEDS ORDERED: ACETAMINOPHEN 325 MG TABLET (FP) PO PRN (16:40)
[2023-03-07] MEDS: chlordiazePOXIDE HCL 25 MG CAPSULE PO SCH ×2 (17:55→22:38)
[2023-03-07] MEDS: PRENATAL VITAMINS W/ FOLIC ACID TABLET (FP) PO SCH (18:02)
[2023-03-07] MEDS ORDERED: MELATONIN 5 MG TABLETS PO SCH (22:00)
[2023-03-07] MEDS: THIAMINE HCL 100 MG TABLET (FP) PO SCH (22:38)
[2023-03-08] MEDS: chlordiazePOXIDE HCL 25 MG CAPSULE PO SCH ×4 (05:21→22:11)
[2023-03-08] MEDS ORDERED: NICOTINE 14 MG/24 HOURS TOPICAL PATCH TD SCH (10:00)
[2023-03-08] MEDS: PRENATAL VITAMINS W/ FOLIC ACID TABLET (FP) PO SCH (10:10)
[2023-03-08 10:43] LABS: HEMATOCRIT 39.6 % (35.4-49); HEMOGLOBIN 13.6 GM/dL (11.7-16.9); MCH 32.2 pg (25.7-33.7); MCHC 34.4 g/dl (32.0-35.9); MEAN CELL VOLUME 93.5 fl (80-96); MEAN PLT VOLUME 7.8 fl (7.5-11.1); PLATELET COUNT 252 10^3/uL (134-434); RBC 4.24 M/mm3 (4.00-5.60); RDW 13.9 % (11.9-15.9); WHITE BLOOD COUNT 7.1 K/mm3 (4.0-10.0)
[2023-03-08 10:53] LABS: CHLORIDE 109 mmol/L (98-107); SODIUM 138 mmol/L (136-145)
[2023-03-08 11:29] LABS: ANION GAP 6 mmol/L (4-13); BLOOD UREA NITROGEN 17.4 mg/dL (7-18); CO2 23 mmol/L (21-32); GLUCOSE,RANDOM 116 mg/dL (74-106)
[2023-03-08 11:32] LABS: CREATININE 0.6 mg/dL (0.55-1.3); SGOT/AST 16 U/L (15-37); SGPT/ALT 28 U/L (13-61)
[2023-03-08 11:34] LABS: BILIRUBIN,TOTAL 0.2 mg/dL (0.2-1); TOT PROT 5.7 g/dl (6.4-8.2)
[2023-03-08 11:35] LABS: ALK PHOS 80 U/L (45-117)
[2023-03-08] MEDS ORDERED: NICOTINE POLACRILEX 2 MG GUM BUC PRN (14:16)
[2023-03-08] MEDS ORDERED: QUEtiapine FUMARATE 100 MG TABLET (FP) PO SCH (22:00)
[2023-03-08] MEDS: THIAMINE HCL 100 MG TABLET (FP) PO SCH (22:11)
[2023-03-09] MEDS: chlordiazePOXIDE HCL 25 MG CAPSULE PO SCH ×2 (05:39→10:13)
[2023-03-09] MEDS: PRENATAL VITAMINS W/ FOLIC ACID TABLET (FP) PO SCH (10:13)
[2023-03-09 10:41] VITALS: BP 107/63; PULSE 91; RESP 18; TEMP 97.8
[2023-03-10] MEDS ORDERED: chlordiazePOXIDE HCL 10 MG CAPSULE PO PRN
[2023-03-10] MEDS ORDERED: chlordiazePOXIDE HCL 10 MG CAPSULE PO SCH (05:00)
[2023-03-11] MEDS ORDERED: chlordiazePOXIDE HCL 10 MG CAPSULE PO SCH (05:00)
[2023-03-12] MEDS ORDERED: chlordiazePOXIDE HCL 10 MG CAPSULE PO ONE (05:00)
== END 2023-03-09 13:55 | disposition left against medical advice (07) | DRG 770 ==
LOC: YASAS 12:44 → Y6N 16:43
PROVIDERS: ADMIT Allergy & Immunology; ATTEND Surgery
PROC: HZ2ZZZZ Detoxification Services for Substance Abuse Treatment (ICD-10-PCS; principal; 2023-03-07)
DX: F10.230 Alcohol dependence with withdrawal, uncomplicated (principal); F14.20 Cocaine dependence, uncomplicated; F12.20 Cannabis dependence, uncomplicated; F17.210 Nicotine dependence, cigarettes, uncomplicated; F33.1 Major depressive disorder, recurrent, moderate; F19.282 Other psychoactive substance dependence with psychoactive substance-induced sleep disorder; Z28.310 Unvaccinated for COVID-19; Z28.9 Immunization not carried out for unspecified reason; Z86.19 Personal history of other infectious and parasitic diseases; Z56.0 Unemployment, unspecified; Z59.00 Homelessness unspecified
CPT/HCPCS: 36415; 80053; 80307; 85027; 86593; 86780; 87635

== ENCOUNTER 2023-04-08 12:22 | Inpatient (IN) | payer OTHER ==
[2023-04-08 13:37] VITALS: BMI 22.9
[2023-04-08] MEDS ORDERED: BENZONATATE 200 MG CAPSULE PO PRN (14:39)
[2023-04-08] MEDS ORDERED: DICYCLOMINE HCL 10 MG CAPSULE PO PRN (14:39)
[2023-04-08] MEDS ORDERED: ACETAMINOPHEN 325 MG TABLET (FP) PO PRN (14:39)
[2023-04-08] MEDS ORDERED: IBUPROFEN 400 MG TABLET (FP) PO PRN (14:39)
[2023-04-08] MEDS ORDERED: IBUPROFEN 600 MG TABLET (FP) PO PRN (14:39)
[2023-04-08] MEDS ORDERED: MAGNESIUM HYDROX 2400MG/30ML ORAL SUSPENSION 30 ML CUP PO PRN (14:39)
[2023-04-08] MEDS ORDERED: chlordiazePOXIDE HCL 25 MG CAPSULE PO PRN (14:39)
[2023-04-08] MEDS ORDERED: LOPERAMIDE HCL 2 MG CAPSULE PO PRN (14:39)
[2023-04-08] MEDS ORDERED: POLYETHYLENE GLYCOL (HEALTHYLAX) 3350 17 GM PACKET PO PRN (14:39)
[2023-04-08] MEDS ORDERED: guaiFENesin 600 MG TABLET.ER (FP) PO PRN (14:39)
[2023-04-08] MEDS ORDERED: BISMUTH SUBSALICYLATE 262 MG/15 ML BTL PO PRN (14:39)
[2023-04-08] MEDS ORDERED: NALOXONE HCL 0.4 MG/ML VIAL IM PRN (14:39)
[2023-04-08] MEDS ORDERED: BENZOCAINE/MENTHOL (CHLORASEPTIC ) LOZENGE MM PRN (14:39)
[2023-04-08] MEDS ORDERED: NALOXONE HCL (KLOXXADO) 8 MG SPRAY NS PRN (14:39)
[2023-04-08] MEDS: QUEtiapine FUMARATE 100 MG TABLET (FP) PO SCH (22:03)
[2023-04-08] MEDS: MELATONIN 5 MG TABLETS PO SCH (22:03)
[2023-04-08] MEDS: THIAMINE HCL 100 MG TABLET (FP) PO SCH (22:04)
[2023-04-08] MEDS: chlordiazePOXIDE HCL 25 MG CAPSULE PO SCH (23:04)
[2023-04-09] MEDS: NICOTINE 21 MG/24 HOURS TOPICAL PATCH TD SCH (10:23)
[2023-04-09] MEDS: PRENATAL VITAMINS W/ FOLIC ACID TABLET (FP) PO SCH (10:23)
[2023-04-09 10:29] LABS: HEMATOCRIT 40.7 % (35.4-49); HEMOGLOBIN 13.5 GM/dL (11.7-16.9); MCH 31.5 pg (25.7-33.7); MCHC 33.2 g/dl (32.0-35.9); MEAN PLT VOLUME 7.6 fl (7.5-11.1); PLATELET COUNT 226 10^3/uL (134-434); RBC 4.29 M/mm3 (4.00-5.60); RDW 13.8 % (11.9-15.9); WHITE BLOOD COUNT 6.6 K/mm3 (4.0-10.0)
[2023-04-09 10:51] LABS: CHLORIDE 112 mmol/L (98-107); POTASSIUM 3.7 mmol/L (3.5-5.1); SODIUM 143 mmol/L (136-145)
[2023-04-09 11:00] LABS: ANION GAP 4 mmol/L (4-13); BLOOD UREA NITROGEN 15.1 mg/dL (7-18); CALCIUM 8.7 mg/dL (8.5-10.1); CO2 27 mmol/L (21-32); GLUCOSE,RANDOM 111 mg/dL (74-106)
[2023-04-09 11:03] LABS: SGOT/AST 12 U/L (15-37)
[2023-04-09 11:04] LABS: CREATININE 0.7 mg/dL (0.55-1.3); SGPT/ALT 23 U/L (13-61)
[2023-04-09 11:05] LABS: BILIRUBIN,TOTAL 0.2 mg/dL (0.2-1); TOT PROT 5.8 g/dl (6.4-8.2)
[2023-04-09 11:06] LABS: ALK PHOS 62 U/L (45-117)
[2023-04-09] MEDS: LACTULOSE 20 GM/30 ML UDC (FOR ORAL USE ONLY) PO SCH (17:10)
[2023-04-09] MEDS: ONDANSETRON *ODT* 4 MG TABLET SL PRN (22:53)
[2023-04-10] MEDS: chlordiazePOXIDE HCL 25 MG CAPSULE PO SCH (05:37)
[2023-04-10] MEDS: MAG HYDROX/AL HYDROX/SIMETH 30 ML UNIT-DOSE CUP PO PRN (09:22)
[2023-04-10] MEDS: METHOCARBAMOL 500 MG TABLET PO PRN (17:35)
[2023-04-10] MEDS: hydrOXYzine PAMOATE 25 MG CAPSULE (FP) PO PRN (22:33)
[2023-04-11] MEDS ORDERED: chlordiazePOXIDE HCL 10 MG CAPSULE PO PRN
[2023-04-11] MEDS: chlordiazePOXIDE HCL 10 MG CAPSULE PO SCH (05:30)
[2023-04-11 09:38] VITALS: BP 123/62; PULSE 90; RESP 18; TEMP 98.1
[2023-04-12] MEDS ORDERED: chlordiazePOXIDE HCL 10 MG CAPSULE PO SCH (05:00)
[2023-04-13] MEDS ORDERED: chlordiazePOXIDE HCL 10 MG CAPSULE PO ONE (05:00)
== END 2023-04-11 09:46 | disposition left against medical advice (07) | DRG 770 ==
LOC: YASAS 12:22 → Y6N 14:55
PROVIDERS: ADMIT Allergy & Immunology; ATTEND Surgery
PROC: HZ2ZZZZ Detoxification Services for Substance Abuse Treatment (ICD-10-PCS; principal; 2023-04-08)
DX: F10.20 Alcohol dependence, uncomplicated (principal); F14.20 Cocaine dependence, uncomplicated; F12.20 Cannabis dependence, uncomplicated; F17.210 Nicotine dependence, cigarettes, uncomplicated; F20.9 Schizophrenia, unspecified; F32.A Depression, unspecified; Z86.19 Personal history of other infectious and parasitic diseases; Z59.00 Homelessness unspecified
CPT/HCPCS: 36415; 80053; 80305; 80307; 82140; 83036; 85027; 86593; 86780; 87635; 87811; 93005; 93010; Q0162

== ENCOUNTER 2023-05-16 14:57 | Inpatient (IN) | payer OTHER ==
[2023-05-16 15:26] VITALS: BMI 21.2
[2023-05-16] MEDS ORDERED: NICOTINE POLACRILEX 2 MG GUM BUC PRN (16:57)
[2023-05-16] MEDS ORDERED: IBUPROFEN 400 MG TABLET (FP) PO PRN (16:57)
[2023-05-16] MEDS ORDERED: MAGNESIUM HYDROX 2400MG/30ML ORAL SUSPENSION 30 ML CUP PO PRN (16:57)
[2023-05-16] MEDS ORDERED: LOPERAMIDE HCL 2 MG CAPSULE PO PRN (16:57)
[2023-05-16] MEDS ORDERED: BENZOCAINE/MENTHOL (CHLORASEPTIC ) LOZENGE MM PRN (16:57)
[2023-05-16] MEDS ORDERED: ACETAMINOPHEN 325 MG TABLET (FP) PO PRN (16:57)
[2023-05-16] MEDS ORDERED: guaiFENesin 600 MG TABLET.ER (FP) PO PRN (16:57)
[2023-05-16] MEDS ORDERED: DICYCLOMINE HCL 10 MG CAPSULE PO PRN (16:57)
[2023-05-16] MEDS ORDERED: POLYETHYLENE GLYCOL (HEALTHYLAX) 3350 17 GM PACKET PO PRN (16:57)
[2023-05-16] MEDS ORDERED: BENZONATATE 200 MG CAPSULE PO PRN (16:57)
[2023-05-16] MEDS ORDERED: BISMUTH SUBSALICYLATE 524 MG/30 ML PO PRN (16:57)
[2023-05-16] MEDS ORDERED: ONDANSETRON *ODT* 4 MG TABLET SL PRN (16:57)
[2023-05-16] MEDS: SULFAMETHOXAZOLE/TRIMETHOPRIM 800MG/160MG D.S. TABLET PO SCH (17:39)
[2023-05-16] MEDS ORDERED: BACITRACIN ZINC 15 GM TUBE TOPICAL OINTMENT TP SCH (22:00)
[2023-05-16] MEDS: hydrOXYzine PAMOATE 25 MG CAPSULE (FP) PO PRN (22:34)
[2023-05-16] MEDS: MELATONIN 5 MG TABLETS PO SCH (22:35)
[2023-05-16] MEDS: METHOCARBAMOL 500 MG TABLET PO PRN (22:35)
[2023-05-16] MEDS: BACITRACIN 0.9 GM PACKET TP SCH (22:35)
[2023-05-16] MEDS: THIAMINE HCL 100 MG TABLET (FP) PO SCH (22:35)
[2023-05-17] MEDS: PRENATAL VITAMINS W/ FOLIC ACID TABLET (FP) PO SCH (10:27)
[2023-05-17] MEDS ORDERED: chlordiazePOXIDE HCL 25 MG CAPSULE PO PRN (10:36)
[2023-05-17] MEDS: chlordiazePOXIDE HCL 25 MG CAPSULE PO SCH (10:59)
[2023-05-17 12:20] LABS: HEMATOCRIT 39.5 % (35.4-49); HEMOGLOBIN 13.3 GM/dL (11.7-16.9); MCH 32.2 pg (25.7-33.7); MCHC 33.7 g/dl (32.0-35.9); MEAN CELL VOLUME 95.6 fl (80-96); PLATELET COUNT 301 10^3/uL (134-434); RBC 4.14 M/mm3 (4.00-5.60); RDW 13.7 % (11.9-15.9); WHITE BLOOD COUNT 9.2 K/mm3 (4.0-10.0)
[2023-05-17 13:38] LABS: CALCIUM 8.5 mg/dL (8.5-10.1)
[2023-05-17 13:39] LABS: ALBUMIN 3.2 g/dl (3.4-5.0)
[2023-05-17 13:40] LABS: BLOOD UREA NITROGEN 13.6 mg/dL (7-18)
[2023-05-17 13:42] LABS: CREATININE 0.9 mg/dL (0.55-1.3)
[2023-05-17 13:43] LABS: BILIRUBIN,TOTAL 0.2 mg/dL (0.2-1); TOT PROT 5.8 g/dl (6.4-8.2)
[2023-05-17] MEDS: QUEtiapine FUMARATE 100 MG TABLET (FP) PO SCH (22:28)
[2023-05-18] MEDS: IBUPROFEN 600 MG TABLET (FP) PO PRN (12:29)
[2023-05-18] MEDS: MAG HYDROX/AL HYDROX/SIMETH 30 ML UNIT-DOSE CUP PO PRN (20:32)
[2023-05-18 21:08] VITALS: RESP 18
[2023-05-19] MEDS: chlordiazePOXIDE HCL 25 MG CAPSULE PO SCH (05:24)
[2023-05-19 09:24] VITALS: BP 108/62; PULSE 72; TEMP 96
[2023-05-20] MEDS ORDERED: chlordiazePOXIDE HCL 10 MG CAPSULE PO PRN
[2023-05-20] MEDS ORDERED: chlordiazePOXIDE HCL 10 MG CAPSULE PO SCH (05:00)
[2023-05-21] MEDS ORDERED: chlordiazePOXIDE HCL 10 MG CAPSULE PO SCH (05:00)
[2023-05-22] MEDS ORDERED: chlordiazePOXIDE HCL 10 MG CAPSULE PO ONE (05:00)
== END 2023-05-19 11:35 | disposition left against medical advice (07) | DRG 770 ==
LOC: YASAS 14:57 → Y6N 17:14 → UNDOADMIN 17:14 → UNDODISIN 05-19 11:35
PROVIDERS: ADMIT Allergy & Immunology; ATTEND Surgery
PROC: HZ2ZZZZ Detoxification Services for Substance Abuse Treatment (ICD-10-PCS; principal; 2023-05-16)
DX: F10.230 Alcohol dependence with withdrawal, uncomplicated (principal); F14.20 Cocaine dependence, uncomplicated; F12.20 Cannabis dependence, uncomplicated; F17.210 Nicotine dependence, cigarettes, uncomplicated; F33.1 Major depressive disorder, recurrent, moderate; F19.282 Other psychoactive substance dependence with psychoactive substance-induced sleep disorder; L02.91 Cutaneous abscess, unspecified; S61.412D Laceration without foreign body of left hand, subsequent encounter; S61.411D Laceration without foreign body of right hand, subsequent encounter; W22.8XXD Striking against or struck by other objects, subsequent encounter; Z86.19 Personal history of other infectious and parasitic diseases; Z56.0 Unemployment, unspecified; Z59.00 Homelessness unspecified
CPT/HCPCS: 36415; 73130-TC-RT-FY; 80053; 80305; 85027; 86593; 86780

== ENCOUNTER 2023-10-12 14:29 | Inpatient (IN) | payer OTHER ==
[2023-10-12 16:44] VITALS: BMI 23.9
[2023-10-12] MEDS ORDERED: IBUPROFEN 400 MG TABLET (FP) PO PRN (17:50)
[2023-10-12] MEDS ORDERED: guaiFENesin 600 MG TABLET.ER (FP) PO PRN (17:50)
[2023-10-12] MEDS ORDERED: DICYCLOMINE HCL 10 MG CAPSULE PO PRN (17:50)
[2023-10-12] MEDS ORDERED: IBUPROFEN 600 MG TABLET (FP) PO PRN (17:50)
[2023-10-12] MEDS ORDERED: NALOXONE HCL 0.4 MG/ML VIAL IM PRN (17:50)
[2023-10-12] MEDS ORDERED: MAG HYDROX/AL HYDROX/SIMETH 30 ML UNIT-DOSE CUP PO PRN (17:50)
[2023-10-12] MEDS ORDERED: BISMUTH SUBSALICYLATE 524 MG/30 ML PO PRN (17:50)
[2023-10-12] MEDS ORDERED: ONDANSETRON *ODT* 4 MG TABLET SL PRN (17:50)
[2023-10-12] MEDS ORDERED: BENZOCAINE/MENTHOL (CHLORASEPTIC ) LOZENGE MM PRN (17:50)
[2023-10-12] MEDS ORDERED: MAGNESIUM HYDROX 2400MG/30ML ORAL SUSPENSION 30 ML CUP PO PRN (17:50)
[2023-10-12] MEDS ORDERED: ACETAMINOPHEN 325 MG TABLET (FP) PO PRN (17:50)
[2023-10-12] MEDS ORDERED: LOPERAMIDE HCL 2 MG CAPSULE PO PRN (17:50)
[2023-10-12] MEDS ORDERED: POLYETHYLENE GLYCOL (HEALTHYLAX) 3350 17 GM PACKET PO PRN (17:50)
[2023-10-12] MEDS ORDERED: BENZONATATE 200 MG CAPSULE PO PRN (17:50)
[2023-10-12] MEDS ORDERED: NALOXONE (NARCAN) HCL 4 MG/0.1 ML SPRAY NS PRN (17:50)
[2023-10-12] MEDS: MELATONIN 5 MG TABLETS PO SCH (22:11)
[2023-10-12] MEDS: THIAMINE 100 MG TABLET PO SCH (22:11)
[2023-10-12] MEDS: METHOCARBAMOL 500 MG TABLET PO PRN (22:12)
[2023-10-13] MEDS: hydrOXYzine PAMOATE 25 MG CAPSULE (FP) PO PRN (05:30)
[2023-10-13 09:20] LABS: CHLORIDE 108 mmol/L (98-107); POTASSIUM 4.1 mmol/L (3.5-5.1); SODIUM 141 mmol/L (136-145)
[2023-10-13] MEDS: PRENATAL VITAMINS W/ FOLIC ACID TABLET (FP) PO SCH (09:21)
[2023-10-13 09:22] LABS: CALCIUM 8.5 mg/dL (8.5-10.1)
[2023-10-13 09:23] LABS: ALBUMIN 3.1 g/dl (3.4-5.0); ANION GAP 9 mmol/L (4-13); BLOOD UREA NITROGEN 14.8 mg/dL (7-18); CO2 24 mmol/L (21-32); GLUCOSE,RANDOM 104 mg/dL (74-106); HEMATOCRIT 40.7 % (35.4-49); HEMOGLOBIN 13.9 GM/dL (11.7-16.9); MCH 32.7 pg (25.7-33.7); MCHC 34.3 g/dl (32.0-35.9); MEAN CELL VOLUME 95.5 fl (80-96); MEAN PLT VOLUME 8.3 fl (7.5-11.1); PLATELET COUNT 251 10^3/uL (134-434); RBC 4.26 M/mm3 (4.00-5.60); RDW 13.6 % (11.9-15.9); WHITE BLOOD COUNT 13.2 K/mm3 (4.0-10.0)
[2023-10-13 09:25] LABS: SGPT/ALT 20 U/L (13-61)
[2023-10-13 09:26] LABS: CREATININE 0.7 mg/dL (0.55-1.3); SGOT/AST 16 U/L (15-37)
[2023-10-13 09:29] LABS: ALK PHOS 82 U/L (45-117); BILIRUBIN,TOTAL 0.2 mg/dL (0.2-1); TOT PROT 5.7 g/dl (6.4-8.2)
[2023-10-13] MEDS ORDERED: chlordiazePOXIDE HCL 25 MG CAPSULE PO PRN (13:09)
[2023-10-13] MEDS: chlordiazePOXIDE HCL 25 MG CAPSULE PO SCH (17:17)
[2023-10-13] MEDS: QUEtiapine FUMARATE 100 MG TABLET (FP) PO SCH (22:43)
[2023-10-14] MEDS: chlordiazePOXIDE HCL 25 MG CAPSULE PO SCH (05:51)
[2023-10-14 10:03] LABS: BASO % 0.5 % (0-2.0); EOS % 2.4 % (0-4.5); HEMATOCRIT 42.7 % (35.4-49); HEMOGLOBIN 14.5 GM/dL (11.7-16.9); LYMPH % 19.5 % (8-40); MCH 32.6 pg (25.7-33.7); MCHC 33.9 g/dl (32.0-35.9); MEAN CELL VOLUME 96.1 fl (80-96); MEAN PLT VOLUME 7.7 fl (7.5-11.1); MONO % 7.7 % (3.8-10.2); NEUT % 69.9 % (42.8-82.8); PLATELET COUNT 271 10^3/uL (134-434); RBC 4.44 M/mm3 (4.00-5.60); RDW 13.6 % (11.9-15.9); WHITE BLOOD COUNT 8.7 K/mm3 (4.0-10.0)
[2023-10-14] MEDS: NALTREXONE HCL 50 MG TABLET PO ONE (10:06)
[2023-10-15] MEDS ORDERED: chlordiazePOXIDE HCL 10 MG CAPSULE PO PRN
[2023-10-15] MEDS: chlordiazePOXIDE HCL 10 MG CAPSULE PO SCH (05:53)
[2023-10-15 06:22] VITALS: RESP 16; TEMP 97.7
[2023-10-15 08:53] VITALS: BP 105/75; PULSE 64
[2023-10-15] MEDS: NALTREXONE HCL 50 MG TABLET PO SCH (09:48)
[2023-10-16] MEDS ORDERED: chlordiazePOXIDE HCL 10 MG CAPSULE PO SCH (05:00)
[2023-10-17] MEDS ORDERED: chlordiazePOXIDE HCL 10 MG CAPSULE PO ONE (05:00)
== END 2023-10-15 10:45 | disposition home or self-care (01) | DRG 774 ==
LOC: YASAS 14:29 → Y6N 18:23
PROVIDERS: ADMIT Neuromusculoskeletal Medicine & OMM; ATTEND Neuromusculoskeletal Medicine & OMM
PROC: HZ2ZZZZ Detoxification Services for Substance Abuse Treatment (ICD-10-PCS; principal; 2023-10-12)
DX: F10.230 Alcohol dependence with withdrawal, uncomplicated (principal); F14.20 Cocaine dependence, uncomplicated; F12.20 Cannabis dependence, uncomplicated; F17.210 Nicotine dependence, cigarettes, uncomplicated; F19.282 Other psychoactive substance dependence with psychoactive substance-induced sleep disorder; F31.9 Bipolar disorder, unspecified; F41.9 Anxiety disorder, unspecified; D72.829 Elevated white blood cell count, unspecified; Z86.19 Personal history of other infectious and parasitic diseases; Z59.01 Sheltered homelessness
CPT/HCPCS: 36415; 80053; 80305; 80307; 85025; 85027; 86593; 86780; 93005; 93010